=== PATIENT | female | born 1985 | race Caucasian/White ===

== ENCOUNTER → 2020-02-29 | Outpatient (CLI) | payer OTHER ==
[~2020-02-29] MED LIST: BETAMETHASONE D50 G2 TOP; CELEXA 20 MG TA20 MG PO; DULOXETINE HCL60 MG PO; HYDROCODON-ACE1 EAC8 PO; LISINOPRIL PO; NEURONTIN 300M300 M2 PO; VITAMIN B-121000 MC2 IM; VOLTAREN GEL 1100 G2 TOP
== END ==
LOC: M.RAD 08:38 → M.PC 08:38
DX: M47.26 Other spondylosis with radiculopathy, lumbar region (principal); M79.672 Pain in left foot; M79.671 Pain in right foot; G89.4 Chronic pain syndrome; Z79.899 Other long term (current) drug therapy

== ENCOUNTER → 2020-03-19 | Outpatient (CLI) | payer OTHER ==
[~2020-03-19] MED LIST changes: -NEURONTIN 300M300 M2 PO; +NEURONTIN600 MG PO; +NORCO 5-325 TA1 EAC1 PO
== END ==
LOC: M.PC 02:35
PROVIDERS: ATTEND Physical Medicine & Rehabilitation
DX: M47.26 Other spondylosis with radiculopathy, lumbar region (principal)

== ENCOUNTER 2020-04-17 19:43 | Emergency (ER) | payer OTHER ==
[~2020-04-17] VITALS: Ht 170.2 cm; Wt 97.5 kg
[2020-04-17 19:57] VITALS: BP 149/94
[2020-04-17] MEDS ORDERED: GABAPENTIN100 MG PO ×2 (20:00)
[2020-04-17] MEDS ORDERED: KEFLEX500 M1 PO ×2 (20:34)
[2020-04-17] MEDS ORDERED: ZOFRAN ODT4 MG PO ×2 (20:34)
== END 2020-04-17 20:39 | disposition home or self-care (01) ==
LOC: M.ERS 19:43
DX: S01.112A Laceration without foreign body of left eyelid and periocular area, initial encounter (principal); G89.29 Other chronic pain; I10 Essential (primary) hypertension; G62.9 Polyneuropathy, unspecified; Z88.8 Allergy status to other drugs, medicaments and biological substances; W25.XXXA Contact with sharp glass, initial encounter; Y93.89 Activity, other specified; Y92.89 Other specified places as the place of occurrence of the external cause; Y99.8 Other external cause status

== ENCOUNTER → 2020-04-30 | Outpatient (CLI) | payer OTHER ==
[~2020-04-30] MED LIST changes: +GABAPENTIN100 MG PO; +KEFLEX500 M1 PO; +ZOFRAN ODT4 MG PO
== END ==
LOC: M.PC 10:23
PROVIDERS: ATTEND Physical Medicine & Rehabilitation
DX: M79.671 Pain in right foot (principal); M79.672 Pain in left foot; R20.2 Paresthesia of skin; M47.816 Spondylosis without myelopathy or radiculopathy, lumbar region

== ENCOUNTER → 2020-06-25 | Outpatient (CLI) | payer OTHER | LOC: M.PC 10:37 | PROVIDERS: ATTEND Physical Medicine & Rehabilitation | DX: M47.816 Spondylosis without myelopathy or radiculopathy, lumbar region (principal); G89.29 Other chronic pain; M79.672 Pain in left foot; M79.671 Pain in right foot ==

== ENCOUNTER → 2020-07-30 | Outpatient (CLI) | payer OTHER | LOC: M.PC 09:16 | PROVIDERS: ATTEND Physical Medicine & Rehabilitation | DX: M79.672 Pain in left foot (principal); M79.671 Pain in right foot; R20.0 Anesthesia of skin; G89.4 Chronic pain syndrome; M47.816 Spondylosis without myelopathy or radiculopathy, lumbar region ==

== ENCOUNTER → 2020-08-14 | Outpatient (CLI) | payer OTHER | LOC: M.CT 09:19 | PROVIDERS: ATTEND Physical Medicine & Rehabilitation | DX: M25.474 Effusion, right foot (principal) ==

== ENCOUNTER → 2020-08-22 | Outpatient (CLI) | payer OTHER | LOC: M.MRI 10:55 | PROVIDERS: ATTEND Physical Medicine & Rehabilitation | DX: M47.26 Other spondylosis with radiculopathy, lumbar region (principal); M48.07 Spinal stenosis, lumbosacral region; M54.5 Low back pain ==

== ENCOUNTER → 2020-08-27 | Outpatient (CLI) | payer OTHER | LOC: M.PC 09:21 | PROVIDERS: ATTEND Physical Medicine & Rehabilitation | DX: M79.671 Pain in right foot (principal); M79.672 Pain in left foot; R20.0 Anesthesia of skin; G89.4 Chronic pain syndrome; M54.5 Low back pain; M47.816 Spondylosis without myelopathy or radiculopathy, lumbar region; G62.9 Polyneuropathy, unspecified ==